=== PATIENT | female | born 1955 | race Caucasian/White ===

== ENCOUNTER 2019-07-11 19:23 | Outpatient (CLI) | payer BC ==
--- NOTE | 2019-07-11 23:32 | RAD ---
RIGHT FOOT 3 VIEWS: Date: 07/11/19 Comparison made with a 12/02/09 study from [facility]. No fracture seen. Specifically, along the area of the fourth toe, no acute bony changes were detected . 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 There were, perhaps, some mild changes in 2009, but they are more advanced now. A small calcaneal spur was noted. IMPRESSION: No acute findings. POS: HOME
== END 2019-07-11 19:24 | disposition home or self-care (01) ==
LOC: BURRAD 19:23
PROVIDERS: ATTEND Nurse Practitioner
DX: S90.31XA Contusion of right foot, initial encounter (principal)